=== PATIENT | female | born 1990 | race American Indian/Alaskan Native ===

== ENCOUNTER 2019-08-12 17:20 | Emergency (ER) | payer BC, OTHER ==
[2019-08-12] MEDS ORDERED: ONDANSETRON 4 MG/2 ML INJ IV ONE (17:39)
--- NOTE | 2019-08-12 17:40 | Emergency Department Report ---
ED General Adult HPI - General Chief complaint: Syncope Stated complaint: SYNCOPY Time Seen by Provider: 08/12/19 17:29 Source: patient, family (patient's fianc), EMS (verbal report received from emergency medical services. EMS documentation not available at time of chart dictation ), RN notes reviewed Mode of arrival: Stretcher Limitations: Other (the patient is upset and intoxicated) - History of Present Illness Initial comments: This is a 29-year-old female. This patient is not known to this provider previously. As per verbal report from emergency medical services, patient contacted 911 because she had been consuming alcohol, began to throw up, then apparently had a vagal loss of consciousness in the field. EMS reports that the patient walks with a steady gait, and was alert and oriented 4. In the emergency room, the patient complains of mild headache which is not described as sudden, thunderclap, maximal intensity, and she does not make any statement that the headache is the worse headache of her life. She admits to recreational consumption of alcohol, nausea, vomiting and then passed out. She states that she is not nauseous at this time. She has a mild headache at this time. She has midline neck pain. She denies DVT and pulmonary embolus risk factors. -: Sudden Location: head Quality: other (patient not able to describe secondary to intoxication) Consistency: other Improves with: other Worsens with: other - Related Data Previous Rx's Medication Instructions Recorded Last Taken Type Multivitamin with Folic Acid [[facility] 400 mcg PO QDAY #30 tablet 08/12/19 Unknown Rx One Daily Essential Tablet] Ondansetron [Zofran Odt] 4 mg PO Q8HR PRN #20 tab.rapdis 08/12/19 Unknown Rx Allergies Allergy/AdvReac Type Severity Reaction Status Date / Time No Known Allergies Allergy Unverified 12/16/14 11:59 ED Review of Systems ROS: Stated complaint: SYNCOPY Other details as noted in HPI Comment: Unobtainable due to pts medical conditions (patient intoxicated) Constitutional: malaise Cardiovascular: syncope Gastrointestinal: nausea, vomiting Neurological: headache ED Past Medical Hx - Past Medical History Previous Medical History?: No - Surgical History Past Surgical History?: No - Social History Smoking Status: Current Every Day Smoker Substance Use Type: Alcohol, Marijuana - Medications Home Medications: Home Medications Medication Instructions Recorded Confirmed Last Taken Type Multivitamin with Folic Acid [[facility] 400 mcg PO QDAY #30 tablet 08/12/19 Unknown Rx One Daily Essential Tablet] Ondansetron [Zofran Odt] 4 mg PO Q8HR PRN #20 tab.rapdis 08/12/19 Unknown Rx ED Physical Exam - General Limitations: No Limitations, Other (during the entire history and physical examination I am showroom manager and escorted by nurse Chucho Dyer) General appearance: appears intoxicated, anxious, obese - Head Head exam: Present: atraumatic, normocephalic - Eye Eye exam: Present: normal appearance, PERRL, EOMI. Absent: nystagmus - ENT ENT exam: Present: normal exam, normal orophraynx, mucous membranes moist, normal external ear exam - Neck Neck exam: Present: normal inspection, full ROM. Absent: tenderness, meningismus - Respiratory Respiratory exam: Present: normal lung sounds bilaterally. Absent: respiratory distress - Cardiovascular Cardiovascular Exam: Present: regular rate, normal rhythm, normal heart sounds. Absent: bradycardia, tachycardia, irregular rhythm, systolic murmur, diastolic murmur, rubs, gallop - GI/Abdominal GI/Abdominal exam: Present: soft. Absent: distended, tenderness, guarding, rebo und, rigid, pulsatile mass - Extremities Exam Extremities exam: Present: normal inspection, full ROM, other (2+ pulses noted in the bilateral upper, lower extremities. There is no long bone tenderness. Musculoskeletal compartments are soft. The pelvis is stable.). Absent: pedal edema, calf tenderness - Back Exam Back exam: Present: normal inspection, full ROM. Absent: tenderness, CVA tenderness (R), CVA tenderness (L), paraspinal tenderness, vertebral tenderness - Neurological Exam Neurological exam: Present: alert, oriented X3, other (there is no facial droop. The tongue is midline. Extraocular movements are intact bilaterally. Patient speaking in full complete sentences. Shoulder shrug is intact bilaterally. Hearing is grossly intact bilaterally. Visual acuity intact to finger counting and color perception at a close distance. 5/5 strength 4 extremities. S ensation intact to light touch in 4 extremities.). Absent: motor sensory deficit - Psychiatric Psychiatric exam: Present: anxious - Skin Skin exam: Present: warm, dry, intact, normal color. Absent: rash ED Course Vital Signs 11/08/12/19 08/12/19 17:33 18:16 19:15 Temperature 98.7 F 97.9 F Pulse Rate 74 97 H Respiratory 20 20 16 Rate Blood Pressure 110/70 Blood Pressure 102/59 [Left] O2 Sat by Pulse 99 98 Oximetry - Reevaluation(s) Reevaluation #1: 08/12/19 17:47 Differential diagnosis, including not limited to: Alcohol intoxication, vagal event, dehydration, orthostasis, intracranial injury, cervical spine injury, electrolyte derangement, arrhythmia Assessment and plan: 29-year-old female who is clinically intoxicated, with episode of loss of consciousness that was proceeded by nausea and vomiting. Suspect alcohol toxicity/poisoning, with probable vagal event. The patient is currently afebrile with reassuring vital signs at this time, moving 4 extremities spontaneously, not violent and combative, but intoxicated. Accu- Chek, EKG, laboratory studies, IV fluids, Reglan, noncontrast CT scan brain and cervical spine pending at this time. Discussed plan of care with patient and fianc, both of whom are amenable to this plan of care. Reevaluation #2: 08/12/19 20:21 Patient observed for 3 hours without recurrent episode of syncope. Laboratory studies unremarkable with the exception of elevated blood alcohol level, consistent with patient's history. No active vomiting, she is now smiling, cooperative, reports she feels improved and is asking to eat. Her fianc is at the bedside and endorses that he feels safe and comfortable at take the patient home. ED Medical Decision Making - Lab Data Result diagrams: 08/12/19 17:47 08/12/19 17:55 Vital Signs 08/12/19 17:33 Temperature 98.7 F Pulse Rate 74 Respiratory 20 Rate Blood Pressure 110/70 O2 Sat by Pulse 99 Oximetry Vital Signs 08/12/19 08/12/19 08/12/19 17:33 18:16 19:15 Temperature 98.7 F 97.9 F Pulse Rate 74 97 H Respiratory 20 20 16 Rate Blood Pressure 110/70 Blood Pressure 102/59 [Left] O2 Sat by Pulse 99 98 Oximetry Lab Results 08/12/19 08/12/19 08/12/19 Range/Units 17:47 17:47 17:47 WBC 8.7 (4.5-11.0) K/mm3 RBC 4.51 (3.65-5.03) M/mm3 Hgb 15.2 H (10.1-14.3) gm/dl Hct 44.3 H (30.3-42.9) % MCV 98 H (79-97) fl MCH 34 H (28-32) pg MCHC 34 (30-34) % RDW 13.1 L (13.2-15.2) % Plt Count 184 (140-440) K/mm3 Sodium (137-145) mmol/L Potassium (3.6-5.0) mmol/L Chloride (98-107) mmol/L Carbon Dioxide (22-30) mmol/L Anion Gap mmol/L BUN (7-17) mg/dL Creatinine (0.7-1.2) mg/dL Estimated GFR ml/min BUN/Creatinine Ratio % Glucose (65-100) mg/dL Calcium (8.4-10.2) mg/dL Magnesium (1.7-2.3) mg/dL Total Creatine Kinase 62 (30-135) units/L HCG, Quant (0-4) mIU/mL Salicylates < 0.3 L (2.8-20.0) mg/dL Acetaminophen (10.0-30.0) ug/mL Plasma/Serum Alcohol (0-0.07) % 08/12/19 08/12/19 08/12/19 Range/Units 17:47 17:47 17:55 WBC (4.5-11.0) K/mm3 RBC (3.65-5.03) M/mm3 Hgb (10.1-14.3) gm/dl Hct (30.3-42.9) % MCV (79-97) fl MCH (28-32) pg MCHC (30-34) % RDW (13.2-15.2) % Plt Count (140-440) K/mm3 Sodium 140 (137-145) mmol/L Potassium 3.7 (3.6-5.0) mmol/L Chloride 105.2 (98-107) mmol/L Carbon Dioxide 21 L (22-30) mmol/L Anion Gap 18 mmol/L BUN 9 (7-17) mg/dL Creatinine 0.6 L (0.7-1.2) mg/dL Estimated GFR > 60 ml/min BUN/Creatinine Ratio 15 % Glucose 99 (65-100) mg/dL Calcium 9.5 (8.4-10.2) mg/dL Magnesium 2.00 (1.7-2.3) mg/dL Total Creatine Kinase (30-135) units/L HCG, Quant (0-4) mIU/mL Salicylates (2.8-20.0) mg/dL Acetaminophen < 5.0 L (10.0-30.0) ug/mL Plasma/Serum Alcohol 0.19 H (0-0.07) % 08/12/19 Range/Units 17:56 WBC (4.5-11.0) K/mm3 RBC (3.65-5.03) M/mm3 Hgb (10.1-14.3) gm/dl Hct (30.3-42.9) % MCV (79-97) fl MCH (28-32) pg MCHC (30-34) % RDW (13.2-15.2) % Plt Count (140-440) K/mm3 Sodium (137-145) mmol/L Potassium (3.6-5.0) mmol/L Chloride (98-107) mmol/L Carbon Dioxide (22-30) mmol/L Anion Gap mmol/L BUN (7-17) mg/dL Creatinine (0.7-1.2) mg/dL Estimated GFR ml/min BUN/Creatinine Ratio % Glucose (65-100) mg/dL Calcium (8.4-10.2) mg/dL Magnesium (1.7-2.3) mg/dL Total Creatine Kinase (30-135) units/L HCG, Quant < 2 (0-4) mIU/mL Salicylates (2.8-20.0) mg/dL Acetaminophen (10.0-30.0) ug/mL Plasma/Serum Alcohol (0-0.07) % - EKG Data -: EKG Interpreted by Oh EKG shows normal: sinus rhythm, axis, intervals, QRS complexes, ST-T waves Rate: normal - EKG Data When compared to previous EKG there are: previous EKG unavailable Interpretation: normal EKG - Radiology Data Radiology results: report reviewed, image reviewed Noncontrast CT scan of the brain is negative for acute disease. Noncontrast CT scan cervical spine is negative for acute disease. Critical care attestation.: If time is entered above; I have spent that time in minutes in the direct care of this critically ill patient, excluding procedure time. ED Disposition Clinical Impression: Alcohol intoxication Qualifiers: Complication of substance-induced condition: uncomplicated Qualified Code(s): F10.920 - Alcohol use, unspecified with intoxication, uncomplicated Disposition: DC-01 TO HOME OR SELFCARE Is pt being admited?: No Does the pt Need Aspirin: No Condition: Stable Additional Instructions: Advance diet as tolerated. Drink plenty of fluids. Please make certain to minimize alcohol consumption, or to moderate alcohol consumption. Do not consume alcohol and operate motor vehicles. Recommend patient not drive or operate motor vehicles or heavy machinery until cleared to do so by her primary care doctor. Recommend follow-up with an outpatient primary care doctor within the next 7 days. Take the nausea medicine as needed and/or directed. Return to the emergency room right away with new, worsened or different symptoms, or symptoms not present on the initial emergency room evaluation. take a multivita min on a daily basis, which can be purchased [id number]. Referrals: [facility] [Provider Group] - 3-5 Days [facility] [Provider Group] - 3-5 Days
[2019-08-12] MEDS ORDERED: METOCLOPRAMIDE 10 MG/2 ML INJ IV ONE (17:45)
[2019-08-12] MEDS ORDERED: D5W/0.45% NACL 1,000 ML IV SCH (18:00)
[2019-08-12 18:13] LABS: Hematocrit 44.3 % (30.3-42.9); Hemoglobin 15.2 gm/dl (10.1-14.3); Mean Corpuscular HGB Conc 34 % (30-34); Mean Corpuscular Volume 98 fl (79-97); Platelet Count 184 K/mm3 (140-440); Red Blood Count 4.51 M/mm3 (3.65-5.03); Red Cell Distribution Width 13.1 % (13.2-15.2)
[2019-08-12 18:24] LABS: BUN/Creatinine Ratio 15; Blood Urea Nitrogen 9 mg/dL (7-17); Calcium 9.5 mg/dL (8.4-10.2); Hemolysis Index 4
--- NOTE | 2019-08-12 20:09 | Cat Scan Report ---
CT head/brain wo con INDICATION / CLINICAL INFORMATION: 29 years Female; etoh syncope head trauma intox. TECHNIQUE: Routine CT head without contrast. All CT scans at this location are performed using CT dos e reduction for ALARA by means of automated exposure control. COMPARISON: None. FINDINGS: BRAIN / INTRACRANIAL CONTENTS: No acute hemorrhage, mass effect, midline shift, hydrocephalus, or acu te, large territorial infarct. No chronic infarct or atrophy appreciated. No significant white matter abnormality. CRANIOCERVICAL JUNCTION: No significant abnormality. ORBITS: No significant abnormality of visualized orbits. SINUSES / MASTOIDS: No significant abnormality the visualized paranasal sinuses or mastoid air cells. ADDITIONAL FINDINGS: None. IMPRESSION: 1. No focal mass, hemorrhage, hydrocephalus, or acute, large territorial infarct. Signer Name: Hussain Chapman MD, III Signed: 08/12/2019 8:04 PM Workstation Name: [id number]
--- NOTE | 2019-08-12 20:13 | Cat Scan Report ---
CT cervical spine wo con INDICATION / CLINICAL INFORMATION: 29 years Female; etoh drunk fall syncope intox. TECHNIQUE: Axial CT images of the cervical spine were obtained. Sagittal and coronal reformatted images were pr oduced. All CT scans at this location are performed using CT dose reduction for ALARA by means of aut omated exposure control. COMPARISON: None available. FINDINGS: POST-SURGICAL CHANGES: None. ALIGNMENT: No significant abnormality. VERTEBRAE: No signs of fracture. Vertebral bodies are grossly normal in height throughout. No signif icant facet joint disease or osseous foraminal narrowing appreciated. INTRAVERTEBRAL DISCS:Disc spaces are fairly well-maintained throughout without significant canal sten osis. PARASPINAL SOFT TISSUES: No significant abnormality. ADDITIONAL FINDINGS: None. IMPRESSION: 1. No signs of acute bony trauma to the cervical spine. Signer Name: Hussain Chapman MD, III Signed: 08/12/2019 8:08 PM Workstation Name: [id number]
[2019-08-12 20:50] VITALS: BP 98/50
== END 2019-08-12 20:35 | disposition home or self-care (01) ==
LOC: ED 17:20
DX: F10.920 Alcohol use, unspecified with intoxication, uncomplicated (principal); F17.200 Nicotine dependence, unspecified, uncomplicated; F12.10 Cannabis abuse, uncomplicated
CPT/HCPCS: 36415; 70450; 72125; 80048; 82550; 82962; 83735; 84702; 85027; 93005; 93010; 96361; 96374; 99285; J2765; 80320; G0480